=== PATIENT | male | born 1975 | race African-American/Black ===

== ENCOUNTER 2018-02-09 23:06 | Emergency (ER) | payer MEDICAID ==
--- NOTE | 2018-02-10 00:18 | ED Physician Chart ---
ED Chief Complaint/HPI - Patient Information Date Seen:: 02/10/18 Time Seen:: 23:30 Chief Complaint:: EAR WAX IMPACTION RT EAR UNABLE TO HEAR History of Present Illness:: 42 YR OLD MALE WITH EAR WAX IMPACTION UNABLE TO HEAR Allergies:: Allergies Allergy/AdvReac Type Severity Reaction Status Date / Time No Known Allergies Allergy Verified 02/09/18 23:20 Vitals:: Vital Signs - 8 hr 02/09/18 23:10 Temp 97.9 F HR 86 RR 18 BP 126/83 O2 Sat % 98 ED Review of Systems - Review of Systems General/Constitutional: No fever, No chills, No weight loss, No weakness, No diaphoresis, No edema, No loss of appetite Skin: No skin lesions, No rash, No bruising Head: No headache, No light-headedness Eyes: No loss of vision, No pain, No diplopia ENT: Other (UNABLE TO HEAR) Neck: No neck pain, No swelling, No thyromegaly, No stiffness, No mass noted Cardio Vascular: No chest pain, No palpitations, No PND, No orthopnea, No edema Pulmonary: No SOB, No cough, No sputum, No wheezing GI: No nausea, No vomiting, No diarrhea, No pain, No melena, No hematochezia, No constipation, No hematemesis G/U: No dysuria, No frequency, No hematuria Musculoskeletal: No bone or joint pain, No back pain, No muscle pain Endocrine: No polyuria, No polydipsia Psychiatric: No prior psych history, No depression, No anxiety, No suicidal ideation Hematopoietic: No bruising, No lymphadenopathy Allergic/Immuno: No urticaria, No angioedema Neurological: No syncope, No focal symptoms, No weakness, No paresthesia, No headache, No seizure, No dizziness, No confusion, No vertigo ED Past Medical History - Past Medical History Past Medical History: No significant medical hx Family Medical History - Family Member Mother History Unknown: Yes ED Physical Exam - Physical Examination General/Constitutional: Awake, Well-developed, well-nourished, Alert, No distress, GCS 15, Non-toxic appearing, Ambulatory Head: Atraumatic Eyes: Lids, conjuctiva normal, PERRL, EOMI Skin: Nl inspection, No rash, No skin lesions, No ecchymosis, Well hydrated, No lymphadenopathy ENMT: External ears, nose nl, Nasal exam nl, Lips, teeth, gums nl Other ENMT comments:: EAR WAX IMPACTION Neck: Nontender, Full ROM w/o pain, No JVD, No nuchal rigidity, No bruit, No mass, No stridor Respiratory: Nl effort/Exclusion, Clear to Auscultation, No Wheeze/Rhonchi/Rales Cardio Vascular: RRR, No murmur, gallop, rubs, NL S1 S2 GI: No tenderness/rebounding/guarding, No organomegaly, No hernia, Normal BS's, Nondistended, No mass/bruits, No McBurney tenderness : No CVA tenderness Extremities: No tenderness or effusion, Full ROM, normal strength in all extremities, No edema, Normal digits & nails Neuro/Psych: Alert/oriented, DTR's symmetric, Normal sensory exam, Normal motor strength, Judgement/insight normal, Mood normal, Normal gait, No focal deficits Misc: Normal back, No paraspinal tenderness ED Assessment - Assessment General Assessment: EAR WAX IMPACTION ED Septic Shock - . Is Septic Shock (SBP<90, OR Lactate>4 mmol\L) present?: No - <6hrs of presentation: Vital Signs: Vital Signs - 8 hr 02/09/18 23:10 Temp 97.9 F HR 86 RR 18 BP 126/83 O2 Sat % 98 ED Reassessment (Disposition) - Reassessment Reassessment Condition:: Improved - Diagnosis Diagnosis:: EAR WAX IMPACTION RT GREATER THAN LEFT ED Discharge Plan - Patient Disposition Admit/Discharge/Transfer: PT DISCHARGED HOME Condition at Disposition: Improved Instructions: Cerumen Impaction Additional Instructions: FILL YOUR PRESCRIPTION AND TAKE IT DIRECTED. FOLLOW UP WITH YOUR REGULAR DOCTOR IF NOT FEELING ANY BETTER.
== END 2018-02-09 23:45 | disposition home or self-care (01) ==
LOC: ER 23:06
DX: H61.21 Impacted cerumen, right ear (principal)